=== PATIENT | female | born 1980 | race Caucasian/White ===

== ENCOUNTER 2022-07-28 18:35 | Emergency (ER) | payer MEDICAID ==
[~2022-07-28] VITALS: Ht 160 cm; Wt 63.0 kg
[2022-07-28] MEDS ORDERED: MAGNESIUM/ALUMINUM HYDROXIDE/SIMETHICONE 30ML UDC PO STA (18:53)
[2022-07-28] MEDS ORDERED: VISCOUS LIDOCAINE 2% 15 ML UDC PO STA (18:53)
[2022-07-28] MEDS ORDERED: MAGNESIUM/ALUMINUM HYDROXIDE/SIMETHICONE 30ML UDC PO NR (18:53)
[2022-07-28] MEDS ORDERED: VISCOUS LIDOCAINE 2% 15 ML UDC PO NR (18:53)
[2022-07-28] MEDS ORDERED: FAMOTIDINE 20MG TABLET PO ONE (19:00)
[2022-07-28] MEDS ORDERED: FAMOTIDINE 20MG TABLET PO NR (19:00)
[2022-07-28] MEDS ORDERED: ONDANSETRON HCL 4MG TABLET PO ONE (19:00)
[2022-07-28] MEDS ORDERED: ONDANSETRON HCL 4MG TABLET PO NR (19:00)
[2022-07-28 19:22] LABS: CLARITY URINE CLEAR (CLEAR); COLOR URINE DARK YELLOW (YELLOW); KETONES URINE TRACE (NEGATIVE); LEUKOCYTE ESTERASE URINE NEGATIVE (NEGATIVE); NITRITE URINE NEGATIVE (NEGATIVE); OCCULT BLOOD URINE NEGATIVE (NEGATIVE); PH URINE 5.5 (4.5-8.0); PROTEIN URINE 2+ (NEGATIVE); SPECIFIC GRAVITY URINE 1.045 (1.005-1.030)
[2022-07-28] MEDS ORDERED: ACETAMINOPHEN 325MG TABLET PO ONE (20:45)
[2022-07-28] MEDS ORDERED: IBUPROFEN 400MG TABLET PO ONE (20:45)
[2022-07-28 21:08] LABS: BASOPHILS % 0.3 % (0.0-2.0); EOSINOPHILS % 2.3 % (0.0-5.0); HEMATOCRIT. 43.9 % (36.0-48.0); LYMPHOCYTES % 27.5 % (20.0-50.0); MEAN CORPUSCULAR HEMOGLOBIN 28.8 pg (28.0-32.0); MEAN CORPUSCULAR VOLUME 84.7 fL (81.0-99.0); MONOCYTES % 6.3 % (2.0-8.0); NEUTROPHILS % 63.6 % (40.0-76.0); PLATELET 187 x1000/uL (130-400); RED BLOOD CELL COUNT 5.19 mill/uL (4.2-5.4)
[2022-07-28 21:11] LABS: CHLORIDE 106 mEq/L (98-107)
[2022-07-28] MEDS ORDERED: FAMO-135 MT (21:32)
[2022-07-28] MEDS ORDERED: MAG-55 MT (21:32)
[2022-07-28 21:41] VITALS: BP 116/62
== END 2022-07-28 23:14 | disposition home or self-care (01) ==
LOC: ER 18:35
DX: R10.13 Epigastric pain (principal); R11.2 Nausea with vomiting, unspecified; R19.7 Diarrhea, unspecified
CPT/HCPCS: 36415; 76705; 80053; 81003; 81025; 83690; 84484; 85025; 99284; Q0162

== ENCOUNTER 2022-08-17 21:40 | Emergency (ER) | payer MEDICAID ==
[~2022-08-17] VITALS: Ht 152.4 cm; Wt 57.9 kg
[~2022-08-17 21:40] MED LIST: FAMO-135 MT; MAG-55 MT
[2022-08-17 21:51] VITALS: BP 148/92
[2022-08-17 23:49] LABS: CLARITY URINE CLEAR (CLEAR); COLOR URINE YELLOW (YELLOW); KETONES URINE NEGATIVE (NEGATIVE); LEUKOCYTE ESTERASE URINE TRACE (NEGATIVE); NITRITE URINE NEGATIVE (NEGATIVE); OCCULT BLOOD URINE NEGATIVE (NEGATIVE); PH URINE 7.5 (4.5-8.0); PROTEIN URINE NEGATIVE (NEGATIVE); SPECIFIC GRAVITY URINE 1.035 (1.005-1.030)
[2022-08-18] MEDS ORDERED: FAMO20TA8 MT (00:23)
[2022-08-18 01:17] LABS: BASOPHILS % 0.3 % (0.0-2.0); EOSINOPHILS % 2.2 % (0.0-5.0); HEMATOCRIT. 39.4 % (36.0-48.0); HEMOGLOBIN. 13.7 g/dL (12.0-16.0); LYMPHOCYTES % 46.7 % (20.0-50.0); MEAN CORPUSCULAR HEMOGLOBIN 29.2 pg (28.0-32.0); MEAN CORPUSCULAR VOLUME 83.8 fL (81.0-99.0); MEAN PLATELET VOLUME 9.1 fl (7.4-10.4); MONOCYTES % 7.5 % (2.0-8.0); NEUTROPHILS % 43.3 % (40.0-76.0); PLATELET 150 x1000/uL (130-400); RED CELL DISTRIBUTION WIDTH 12.9 % (11.6-14.6)
[2022-08-18 01:24] LABS: CHLORIDE 104 mEq/L (98-107)
== END 2022-08-18 03:11 | disposition home or self-care (01) ==
LOC: ER 21:40
DX: E11.65 Type 2 diabetes mellitus with hyperglycemia (principal)
CPT/HCPCS: 36415; 80053; 81003; 82962; 85025; 99283